=== PATIENT | male | born 1980 | race African-American/Black ===

== ENCOUNTER → 2021-04-18 | Outpatient (CLI) | payer OTHER ==
--- NOTE | 2021-04-18 16:30 | KCIC ---
EXAM: Lumbar spine, 5 views; sacrum and pelvis, 4 views HISTORY: Fall. Pain. COMPARISON: None. FINDINGS: Lumbar spine: 5 views of the lumbar spine are obtained. The tip of the right L1 transverse processes congealing nonfused, a normal variant. There is slight retrolisthesis of L4 on L5 and L5 and S1. Ther e is degenerative endplate remodeling at multiple levels. There are multiple endplate Schmorl's nodes . There is disc space narrowing predominantly at L2-L3, L3-L4 and L4-L5. There is facet arthropathy a t the lower lumbar levels. There is no convincing acute fracture. Pelvis and sacrum and coccyx: 3 views of the pelvis and sacrum and coccyx are obtained. There is no f racture, dislocation or subluxation. There is anterior angulation of the tip of the coccyx, likely ph ysiologic. The sacroiliac joints are intact. IMPRESSION: 1. No acute osseous finding. 2. Degenerative change involving the lumbar spine, described above. Electronically signed by: Sharon Hernández MD (04/18/2021 4:28 PM) [id number]
== END ==
LOC: KCIC 15:07
PROVIDERS: ATTEND Family Medicine
DX: S39.92XA Unspecified injury of lower back, initial encounter (principal); M47.816 Spondylosis without myelopathy or radiculopathy, lumbar region; M48.061 Spinal stenosis, lumbar region without neurogenic claudication; M48.8X6 Other specified spondylopathies, lumbar region; M51.46 Schmorl's nodes, lumbar region; W19.XXXA Unspecified fall, initial encounter; Y93.89 Activity, other specified; Y92.89 Other specified places as the place of occurrence of the external cause; Y99.8 Other external cause status
CPT/HCPCS: 72110; 72170; 72220